=== PATIENT | male | born 1980 | race Caucasian/White ===

== ENCOUNTER 2021-05-08 18:35 | Emergency (ER) | payer MEDICAID ==
[2021-05-08] MEDS ORDERED: IBUPROFEN 800 MG TAB ONE (19:59)
== END 2021-05-08 21:21 | disposition home or self-care (01) ==
LOC: MED 18:35
DX: S82.65XA Nondisplaced fracture of lateral malleolus of left fibula, initial encounter for closed fracture (principal); W19.XXXA Unspecified fall, initial encounter; Y93.89 Activity, other specified; Y92.89 Other specified places as the place of occurrence of the external cause; Y99.8 Other external cause status
CPT/HCPCS: 29515; 73610; 99283